=== PATIENT | female | born 1960 | race Caucasian/White ===

== ENCOUNTER 2017-12-24 16:24 | Outpatient (CLI) | payer BC | END 2017-12-24 16:25 | disposition home or self-care (01) | LOC: BICRAD 16:24 | PROVIDERS: ATTEND Internal Medicine Rheumatology | DX: M79.671 Pain in right foot (principal); M21.961 Unspecified acquired deformity of right lower leg ==

== ENCOUNTER 2018-10-31 10:29 | Outpatient (CLI) | payer BC ==
--- NOTE | 2018-10-31 11:21 | RAD ---
LEFT ANKLE RADIOGRAPHS THREE VIEWS: Date: 10-31-18 Provided Clinical History: Left ankle pain. FINDINGS: There is no evidence for fracture or other acute osseous abnormality. Alignment appears anatomic. Susanne nt spaces appear preserved. No erosive changes are seen. No perostitis is evident. IMPRESSION: Unremarkable left ankle radiographs. POS: [facility]
--- NOTE | 2018-10-31 11:22 | RAD ---
RIGHT ANKLE RADIOGRAPHS THREE VIEWS: Date: 10-31-18 Provided Clinical History: Right ankle pain. FINDINGS: There is no evidence for fracture or other acute osseous abnormality. Alignment appears anatomic. Susanne nt spaces appear preserved. No erosive changes are evident. No evidence for perostitis. IMPRESSION: Unremarkable right ankle radiographs. POS: [facility]
== END 2018-10-31 10:30 | disposition home or self-care (01) ==
LOC: SCSRAD 10:29
PROVIDERS: ATTEND Internal Medicine Rheumatology
DX: M25.471 Effusion, right ankle (principal); M25.472 Effusion, left ankle

== ENCOUNTER 2021-09-06 10:48 | Outpatient (CLI) | payer BC | END 2021-09-06 10:49 | disposition home or self-care (01) | LOC: SCSRAD 10:48 | PROVIDERS: ATTEND Internal Medicine Rheumatology | DX: M54.50 Low back pain, unspecified (principal); M47.816 Spondylosis without myelopathy or radiculopathy, lumbar region; M41.9 Scoliosis, unspecified | CPT/HCPCS: 72100 ==

== ENCOUNTER 2023-04-19 10:12 | Outpatient (CLI) | payer BC | END 2023-04-19 10:13 | disposition home or self-care (01) | LOC: SCSRAD 10:12 | PROVIDERS: ATTEND Internal Medicine Rheumatology | DX: M16.11 Unilateral primary osteoarthritis, right hip (principal) ==

== ENCOUNTER → 2024-09-10 | Outpatient (CLI) | payer BC | LOC: SCSRAD 12:40 | PROVIDERS: ATTEND Internal Medicine Rheumatology | DX: M81.0 Age-related osteoporosis without current pathological fracture (principal); M41.34 Thoracogenic scoliosis, thoracic region; M47.814 Spondylosis without myelopathy or radiculopathy, thoracic region | CPT/HCPCS: 72072 ==